=== PATIENT | male | born 1940 | race Caucasian/White ===

== ENCOUNTER 2023-12-06 08:19 | Inpatient (IN) | payer BC ==
[~2023-12-06] VITALS: Ht 177.8 cm; Wt 97.0 kg
[~2023-12-06 08:19] MED LIST: ASCO500C17 PO; ASPI-1053 PO; ATOR20TA PO; BALS750C7 PO; BISA10SU60 RC; CHOL200074 PO; DOCU-395 PO; MECL-302 PO; METO25TA6 PO; NORCO10T PO; POLY119P2 PO; SENN-263 PO; TIOT18CA3 IH
[2023-12-06 10:14] LABS: BASOPHILS # (AUTO) 0.1 X10'3 (0-0.2); BASOPHILS % (AUTO) 0.5 % (0-1); EOSINOPHILS % (AUTO) 0 % (0-6); HEMATOCRIT 42.9 % (42.0-52.0); HEMOGLOBIN 13.7 g/dl (14.0-17.9); LYMPHOCYTES # (AUTO) 0.9 X10'3 (1.1-4.8); LYMPHOCYTES % (AUTO) 8.1 % (21-51); MEAN CORPUSCULAR HEMOGLOBIN 29.4 PG (27.0-31.0); MEAN CORPUSCULAR VOLUME 91.7 FL (78-98); MONOCYTES # (AUTO) 0.9 X10'3 (0-0.9); MONOCYTES % (AUTO) 7.4 % (2-12); NEUTROPHILS # (AUTO) 9.7 X10'3 (1.8-7.7); PLATELET COUNT 200 X10'3 (140-440); RED BLOOD COUNT 4.68 X10'6 (4.70-6.10); RED CELL DISTRIBUTION WIDTH 16.4 % (11.5-14.5); WHITE BLOOD COUNT 11.5 X10'3 (4.5-11.0)
[2023-12-06 10:25] LABS: BILIRUBIN,URINE MODERATE (Neg); CLARITY,URINE SLIGHTLY CLOUDY (Clear); COLOR,URINE YELLOW (Yellow); GLUCOSE, URINE NEGATIVE (Neg); KETONES,URINE TRACE mg/dl (Neg); LEUKOCYTE ESTERASE ,URINE NEGATIVE (Neg); NITRITES, URINE NEGATIVE (Neg); OCCULT BLOOD,URINE NEGATIVE (Neg); PROTEIN,URINE TRACE mg/dl (Neg)
[2023-12-06 10:29] LABS: UA COLLECTION TYPE FOLEY CATH
[2023-12-06 10:30] LABS: CELLULAR CAST >30 /LPF (NEGATIVE); MUCUS STRANDS MANY /LPF (Neg); SQUAMOUS EPITHELIAL CELL,UR NONE SEEN /LPF (FEW)
[2023-12-06 10:33] LABS: BACTERIA,URINE NONE SEEN /HPF (Neg); RBC,URINE NONE SEEN /HPF (0-2)
[2023-12-06] MEDS: vancomycin/NS 1 GM ADD-VANTAGE 250 ML IV ONE (12:11)
[2023-12-06 12:18] LABS: ALBUMIN/GLOBULIN RATIO 0.6 (1.1-1.5); ALKALINE PHOSPHATASE 58 IU/L (46-116); ANION GAP 0 (8-16); ASPARTATE AMINO TRANSFERASE 19 U/L (10-37); BILIRUBIN,TOTAL 0.4 MG/DL (0.1-1.0); BLOOD UREA NITROGEN 24 MG/DL (7-18); CALCIUM 8.9 MG/DL (8.5-10.1); CHLORIDE 100 MMOL/L (99-107); CREATININE 1.09 MG/DL (0.60-1.10); GLUCOSE 140 MG/DL (70-104); MAGNESIUM 2.2 MG/DL (1.5-2.4); POTASSIUM 4.9 MMOL/L (3.5-5.1); PRO BRAIN NATRIURETIC PEPTIDE 2769 PG/ML (0-450); SODIUM 137 MMOL/L (135-145); TOTAL CARBON DIOXIDE 36.7 MMOL/L (24-32); TOTAL PROTEIN 7.7 G/DL (6.4-8.2); eCRCL 52 ML/MIN; eGFR 64 ML/MIN
[2023-12-06] MEDS: ringers solution, lacted 1,000 ML IV ONE (12:26)
[2023-12-06 12:29] LABS: ALANINE AMINOTRANSFERASE 16 U/L (12-78)
[2023-12-06] MEDS ORDERED: potassium Cl 20 mEq SR tablet PO PRN ×2 (13:10)
[2023-12-06] MEDS ORDERED: ondansetron/PF 4mg/2ml inj IV PRN ×2 (13:10)
[2023-12-06] MEDS ORDERED: morphine 2 MG/ML inj. syringe IV PRN (13:10)
[2023-12-06] MEDS ORDERED: magnesium hydroxide 30ml (MOM) UD suspension PO PRN (13:10)
[2023-12-06] MEDS ORDERED: acetaminophen 325mg tablet PO PRN ×2 (13:10)
[2023-12-06] MEDS ORDERED: mag hydrox/Alum hydrox/simeth 30ml oral suspension PO PRN (13:10)
[2023-12-06] MEDS ORDERED: potassium Cl 40MEQ/1/2NS 520ml 520 ML IV PRN (13:10)
[2023-12-06] MEDS ORDERED: magnesium 4gm in 100ml NS 100 ML IV PRN (13:10)
[2023-12-06] MEDS ORDERED: magnesium Cl slow-release 64mg tablet PO PRN (13:10)
[2023-12-06] MEDS ORDERED: magnesium 2GM in 50ml NS 50 ML IV PRN (13:10)
[2023-12-06] MEDS: aspirin 300mg supp.rect RC ONE (15:02)
[2023-12-06] MEDS: piperacillin/tazo 4.5gm/100ml 100 ML IV STA (15:08)
[2023-12-06] MEDS: normal saline 1000ml 1,000 ML IV SCH (15:19)
[2023-12-06] MEDS: albuterol 2.5 MG/3 ML nebule NEB ONE (15:27)
[2023-12-06 15:42] VITALS: O2SAT 93
[2023-12-06 15:46] VITALS: PULSE 61; RESP 18
[2023-12-06 17:01] VITALS: O2SAT 96
[2023-12-06 17:14] VITALS: BP 104/60; PULSE 80; RESP 24; TEMP 97.8; O2SAT 95
[2023-12-06] MEDS: methylPREDNISolone sod succ 125mg/2ml vial IV ONE (17:23)
[2023-12-06 18:30] VITALS: O2SAT 96
[2023-12-06] MEDS: docusate sod 100mg capsule PO SCH (19:32)
[2023-12-06] MEDS: K and/or MAG REPLACEMENT MC SCH (19:32)
[2023-12-06] MEDS: azithromycin/NS 500mg/250ml 250 ML IV SCH (20:26)
[2023-12-06] MEDS: enoxaparin 40mg/0.4ml syringe SQ SCH (20:26)
[2023-12-06 21:06] LABS: D-DIMER 0.91 MG/L FEU (0-0.50)
[2023-12-06 22:00] VITALS: BP 152/65; PULSE 81; RESP 19; TEMP 98.5; O2SAT 96
[2023-12-06] MEDS: CefTRIAXone/D5W-Rocephin 1gm 50 ML IV SCH (22:19)
[2023-12-07] VITALS (11 sets, daily range): BP systolic 109–158; BP diastolic 60–75; PULSE 79–111; RESP 17–23; TEMP 97.5–98.4; O2SAT 93–98
[2023-12-07 08:25] LABS: BASOPHILS % (AUTO) 0.1 % (0-1); EOSINOPHILS % (AUTO) 0 % (0-6); HEMATOCRIT 41.5 % (42.0-52.0); HEMOGLOBIN 13.3 g/dl (14.0-17.9); LYMPHOCYTES # (AUTO) 0.7 X10'3 (1.1-4.8); LYMPHOCYTES % (AUTO) 6.1 % (21-51); MEAN CORPUSCULAR HEMOGLOBIN 29.3 PG (27.0-31.0); MEAN CORPUSCULAR VOLUME 91.7 FL (78-98); MEAN PLATELET VOLUME 9.3 FL (7.4-10.4); MONOCYTES # (AUTO) 0.8 X10'3 (0-0.9); NEUTROPHILS % (AUTO) 86.8 % (42-75); PLATELET COUNT 196 X10'3 (140-440); RED BLOOD COUNT 4.52 X10'6 (4.70-6.10); RED CELL DISTRIBUTION WIDTH 15.5 % (11.5-14.5); WHITE BLOOD COUNT 11.6 X10'3 (4.5-11.0)
[2023-12-07 08:28] LABS: ALANINE AMINOTRANSFERASE 13 U/L (12-78); ALBUMIN 2.6 G/DL (3.4-5.0); ALBUMIN/GLOBULIN RATIO 0.6 (1.1-1.5); ALKALINE PHOSPHATASE 51 IU/L (46-116); ANION GAP 0 (8-16); ASPARTATE AMINO TRANSFERASE 12 U/L (10-37); BILIRUBIN,TOTAL 0.3 MG/DL (0.1-1.0); BLOOD UREA NITROGEN 19 MG/DL (7-18); BUN/CREATININE RATIO 28.4 (10.0-20.0); CALCIUM 8.3 MG/DL (8.5-10.1); CHLORIDE 103 MMOL/L (99-107); CREATININE 0.67 MG/DL (0.60-1.10); GLUCOSE 117 MG/DL (70-104); MAGNESIUM 2.3 MG/DL (1.5-2.4); POTASSIUM 4.6 MMOL/L (3.5-5.1); SODIUM 142 MMOL/L (135-145); eCRCL 85 ML/MIN; eGFR > 90 ML/MIN
[2023-12-07] MEDS: methylPREDNISolone sod succ 125mg/2ml vial IV SCH (09:13)
[2023-12-07] MEDS ORDERED: iohexol 350MG/ML 100ml bottle IV ONE (14:06)
[2023-12-07] MEDS: HYDROcodone/acetaminophen 10/325mg tab PO PRN (22:29)
[2023-12-08] VITALS (13 sets, daily range): BP systolic 113–130; BP diastolic 60–80; PULSE 74–95; RESP 16–30; TEMP 97.8–99; O2SAT 88–97
[2023-12-08 07:13] LABS: BASOPHILS % (AUTO) 0.1 % (0-1); EOSINOPHILS % (AUTO) 0 % (0-6); HEMOGLOBIN 12.5 g/dl (14.0-17.9); LYMPHOCYTES # (AUTO) 0.9 X10'3 (1.1-4.8); LYMPHOCYTES % (AUTO) 9.2 % (21-51); MEAN CORPUSCULAR HEMOGLOBIN 29.3 PG (27.0-31.0); MEAN CORPUSCULAR VOLUME 91.7 FL (78-98); MEAN PLATELET VOLUME 9.1 FL (7.4-10.4); MONOCYTES # (AUTO) 0.9 X10'3 (0-0.9); MONOCYTES % (AUTO) 9.2 % (2-12); NEUTROPHILS # (AUTO) 7.9 X10'3 (1.8-7.7); NEUTROPHILS % (AUTO) 81.5 % (42-75); PLATELET COUNT 221 X10'3 (140-440); RED BLOOD COUNT 4.25 X10'6 (4.70-6.10); RED CELL DISTRIBUTION WIDTH 15.6 % (11.5-14.5); WHITE BLOOD COUNT 9.7 X10'3 (4.5-11.0)
[2023-12-08 07:48] LABS: ALANINE AMINOTRANSFERASE 11 U/L (12-78); ALBUMIN 2.5 G/DL (3.4-5.0); ALBUMIN/GLOBULIN RATIO 0.6 (1.1-1.5); ALKALINE PHOSPHATASE 50 IU/L (46-116); ANION GAP -2 (8-16); ASPARTATE AMINO TRANSFERASE 10 U/L (10-37); BILIRUBIN,TOTAL 0.3 MG/DL (0.1-1.0); BLOOD UREA NITROGEN 20 MG/DL (7-18); BUN/CREATININE RATIO 31.7 (10.0-20.0); CALCIUM 8.1 MG/DL (8.5-10.1); CHLORIDE 101 MMOL/L (99-107); CREATININE 0.63 MG/DL (0.60-1.10); GLUCOSE 120 MG/DL (70-104); MAGNESIUM 2.3 MG/DL (1.5-2.4); POTASSIUM 4.5 MMOL/L (3.5-5.1); SODIUM 141 MMOL/L (135-145); TOTAL PROTEIN 6.5 G/DL (6.4-8.2); eCRCL 90 ML/MIN; eGFR > 90 ML/MIN
[2023-12-08 07:53] LABS: TOTAL CARBON DIOXIDE 42.4 MMOL/L (24-32)
[2023-12-08 10:56] LABS: ABG BASE EXCESS 12.8 mmol/L (-2.0-2.0); ABG HCO3 42.8 mmol/L (22.0-26.0); ABG PCO2 (T) 84.7 mmHg (35.0-48.0); ABG PH (T) 7.321 (7.340-7.440); ABG PO2 (T) 140.2 mmHg (75.0-100.0); ALLEN'S TEST POSITIVE; FCOHb 0.5 % (0.0-3.9); FLOW 6 L/min; FMetHb 0.3 % (0.0-1.5); FO2Hb 98.2 % (94-97); MODE MASK - SIMPLE; TOTAL HEMOGLOBIN 13.6 G/dl (14.0-17.9)
[2023-12-08 14:30] LABS: ABG BASE EXCESS 14.8 mmol/L (-2.0-2.0); ABG HCO3 43.5 mmol/L (22.0-26.0); ABG OXYGEN SATURATION 95.4 % (94-97); ABG PCO2 (T) 73.5 mmHg (35.0-48.0); ABG PH (T) 7.388 (7.340-7.440); ABG PO2 (T) 72.8 mmHg (75.0-100.0); ALLEN'S TEST POSITIVE; FCOHb 0.5 % (0.0-3.9); FHHb 4.6 % (0.0-5.0); FMetHb 0.3 % (0.0-1.5); FO2Hb 94.6 % (94-97); MODE MASK - BIPAP; PATIENT TEMPERATURE 36.6; TOTAL HEMOGLOBIN 13.2 G/dl (14.0-17.9)
[2023-12-09] VITALS (15 sets, daily range): BP systolic 131–147; BP diastolic 59–81; PULSE 75–120; RESP 16–27; TEMP 97.8–98.7; O2SAT 79–94
[2023-12-09 07:17] LABS: BASOPHILS % (AUTO) 0.1 % (0-1); EOSINOPHILS % (AUTO) 0 % (0-6); HEMATOCRIT 39.8 % (42.0-52.0); HEMOGLOBIN 12.6 g/dl (14.0-17.9); LYMPHOCYTES % (AUTO) 11.3 % (21-51); MEAN CORPUSCULAR HEMOGLOBIN 28.9 PG (27.0-31.0); MEAN CORPUSCULAR HGB CONC 31.8 g/dL (33.0-36.5); MEAN PLATELET VOLUME 8.7 FL (7.4-10.4); MONOCYTES # (AUTO) 0.9 X10'3 (0-0.9); MONOCYTES % (AUTO) 9.4 % (2-12); NEUTROPHILS # (AUTO) 7.2 X10'3 (1.8-7.7); NEUTROPHILS % (AUTO) 79.2 % (42-75); PLATELET COUNT 218 X10'3 (140-440); RED BLOOD COUNT 4.37 X10'6 (4.70-6.10); RED CELL DISTRIBUTION WIDTH 15.5 % (11.5-14.5); WHITE BLOOD COUNT 9.1 X10'3 (4.5-11.0)
[2023-12-09 07:39] LABS: ALANINE AMINOTRANSFERASE 14 U/L (12-78); ALBUMIN 2.4 G/DL (3.4-5.0); ALBUMIN/GLOBULIN RATIO 0.6 (1.1-1.5); ALKALINE PHOSPHATASE 41 IU/L (46-116); ANION GAP 0 (8-16); ASPARTATE AMINO TRANSFERASE 18 U/L (10-37); BILIRUBIN,TOTAL 0.3 MG/DL (0.1-1.0); BLOOD UREA NITROGEN 17 MG/DL (7-18); BUN/CREATININE RATIO 26.6 (10.0-20.0); CALCIUM 8.2 MG/DL (8.5-10.1); CHLORIDE 100 MMOL/L (99-107); CREATININE 0.64 MG/DL (0.60-1.10); GLUCOSE 126 MG/DL (70-104); MAGNESIUM 2.1 MG/DL (1.5-2.4); POTASSIUM 4.4 MMOL/L (3.5-5.1); SODIUM 140 MMOL/L (135-145); TOTAL PROTEIN 6.3 G/DL (6.4-8.2); eCRCL 89 ML/MIN; eGFR > 90 ML/MIN
[2023-12-09 07:49] LABS: TOTAL CARBON DIOXIDE 40.4 MMOL/L (24-32)
[2023-12-09] MEDS: ipratropium/albuterol 3ml nebule NEB SCH (11:00)
[2023-12-09] MEDS: diltiazem 30mg tablet PO SCH (16:56)
[2023-12-09] MEDS: methylPREDNISolone sod succ/PF 40mg inj. IV SCH (19:12)
[2023-12-10] VITALS (10 sets, daily range): BP systolic 111–122; BP diastolic 67–79; PULSE 75–97; RESP 15–22; TEMP 97.7–97.9; O2SAT 89–94
[2023-12-10] MEDS: diltiazem 5mg/ml 5ml inj. IV STA ×3 (00:30→01:35)
[2023-12-10 00:40] LABS: BASOPHILS % (AUTO) 0.2 % (0-1); EOSINOPHILS % (AUTO) 0.1 % (0-6); HEMATOCRIT 43.2 % (42.0-52.0); HEMOGLOBIN 13.8 g/dl (14.0-17.9); LYMPHOCYTES # (AUTO) 0.6 X10'3 (1.1-4.8); LYMPHOCYTES % (AUTO) 6.3 % (21-51); MEAN CORPUSCULAR HEMOGLOBIN 28.8 PG (27.0-31.0); MEAN CORPUSCULAR VOLUME 90.1 FL (78-98); MEAN PLATELET VOLUME 8.6 FL (7.4-10.4); MONOCYTES # (AUTO) 0.4 X10'3 (0-0.9); MONOCYTES % (AUTO) 4.4 % (2-12); NEUTROPHILS # (AUTO) 8.4 X10'3 (1.8-7.7); PLATELET COUNT 240 X10'3 (140-440); RED CELL DISTRIBUTION WIDTH 15.6 % (11.5-14.5); WHITE BLOOD COUNT 9.4 X10'3 (4.5-11.0)
[2023-12-10 00:48] LABS: ALANINE AMINOTRANSFERASE 14 U/L (12-78); ALBUMIN 2.8 G/DL (3.4-5.0); ALBUMIN/GLOBULIN RATIO 0.7 (1.1-1.5); ALKALINE PHOSPHATASE 47 IU/L (46-116); ANION GAP 1 (8-16); ASPARTATE AMINO TRANSFERASE 8 U/L (10-37); BILIRUBIN,TOTAL 0.4 MG/DL (0.1-1.0); BLOOD UREA NITROGEN 18 MG/DL (7-18); BUN/CREATININE RATIO 21.7 (10.0-20.0); CALCIUM 8.8 MG/DL (8.5-10.1); CHLORIDE 100 MMOL/L (99-107); CREATININE 0.83 MG/DL (0.60-1.10); GLUCOSE 175 MG/DL (70-104); POTASSIUM 4.3 MMOL/L (3.5-5.1); SODIUM 140 MMOL/L (135-145); TOTAL CARBON DIOXIDE 39.1 MMOL/L (24-32); TOTAL PROTEIN 7.1 G/DL (6.4-8.2); eCRCL 68 ML/MIN; eGFR 88 ML/MIN
[2023-12-10 00:52] LABS: APTT 26 SECONDS (22-32); INR 1.1 INR; PROTHROMBIN TIME 11.4 SECONDS (9.0-12.0)
[2023-12-10] MEDS: diltiazem 5mg/ml 5ml inj. IV ONE (01:34)
[2023-12-10 06:35] LABS: BASOPHILS % (AUTO) 0.1 % (0-1); EOSINOPHILS % (AUTO) 0 % (0-6); HEMATOCRIT 40.2 % (42.0-52.0); HEMOGLOBIN 12.9 g/dl (14.0-17.9); LYMPHOCYTES # (AUTO) 0.6 X10'3 (1.1-4.8); LYMPHOCYTES % (AUTO) 7.3 % (21-51); MEAN CORPUSCULAR HEMOGLOBIN 28.8 PG (27.0-31.0); MEAN CORPUSCULAR VOLUME 90.1 FL (78-98); MEAN PLATELET VOLUME 8.6 FL (7.4-10.4); MONOCYTES # (AUTO) 0.8 X10'3 (0-0.9); MONOCYTES % (AUTO) 9.1 % (2-12); NEUTROPHILS # (AUTO) 7.1 X10'3 (1.8-7.7); NEUTROPHILS % (AUTO) 83.5 % (42-75); PLATELET COUNT 229 X10'3 (140-440); RED BLOOD COUNT 4.46 X10'6 (4.70-6.10); RED CELL DISTRIBUTION WIDTH 15.5 % (11.5-14.5); WHITE BLOOD COUNT 8.5 X10'3 (4.5-11.0)
[2023-12-10 06:59] LABS: ALANINE AMINOTRANSFERASE 14 U/L (12-78); ALBUMIN 2.5 G/DL (3.4-5.0); ALBUMIN/GLOBULIN RATIO 0.6 (1.1-1.5); ALKALINE PHOSPHATASE 41 IU/L (46-116); ANION GAP 1 (8-16); ASPARTATE AMINO TRANSFERASE 12 U/L (10-37); BILIRUBIN,TOTAL 0.3 MG/DL (0.1-1.0); BLOOD UREA NITROGEN 19 MG/DL (7-18); BUN/CREATININE RATIO 26.8 (10.0-20.0); CALCIUM 8.4 MG/DL (8.5-10.1); CHLORIDE 100 MMOL/L (99-107); CREATININE 0.71 MG/DL (0.60-1.10); GLUCOSE 154 MG/DL (70-104); MAGNESIUM 2.1 MG/DL (1.5-2.4); POTASSIUM 4.2 MMOL/L (3.5-5.1); SODIUM 141 MMOL/L (135-145); TOTAL PROTEIN 6.4 G/DL (6.4-8.2); eCRCL 80 ML/MIN; eGFR > 90 ML/MIN
[2023-12-10 07:04] LABS: TOTAL CARBON DIOXIDE 40.2 MMOL/L (24-32)
[2023-12-10] MEDS: BALSALAZIDE DISODIUM PO SCH (08:00)
[2023-12-10] MEDS: polyethylene glycol 3350 17gm powd pack PO SCH (08:47)
[2023-12-10] MEDS: metoprolol tartrate 25mg tablet PO SCH (08:49)
[2023-12-10] MEDS: aspirin 81mg tab.chew PO SCH (08:49)
[2023-12-10] MEDS: ascorbic acid 500mg tablet PO SCH (08:49)
[2023-12-10] MEDS: ipratropium 0.5 MG/2.5ML nebule NEB SCH (10:42)
[2023-12-10] MEDS: atorvastatin 20mg tablet PO SCH (20:01)
[2023-12-11 02:00] VITALS: BP 117/66; PULSE 72; RESP 15; TEMP 97.9; O2SAT 91
[2023-12-11 06:00] VITALS: BP 136/76; PULSE 77; RESP 20; TEMP 97.5; O2SAT 92
[2023-12-11 06:30] LABS: BASOPHILS % (AUTO) 0.2 % (0-1); EOSINOPHILS % (AUTO) 0.2 % (0-6); HEMATOCRIT 42.6 % (42.0-52.0); HEMOGLOBIN 13.4 g/dl (14.0-17.9); LYMPHOCYTES # (AUTO) 1.6 X10'3 (1.1-4.8); LYMPHOCYTES % (AUTO) 13.7 % (21-51); MEAN CORPUSCULAR HEMOGLOBIN 28.7 PG (27.0-31.0); MEAN CORPUSCULAR HGB CONC 31.5 g/dL (33.0-36.5); MEAN PLATELET VOLUME 8.3 FL (7.4-10.4); MONOCYTES # (AUTO) 1.3 X10'3 (0-0.9); MONOCYTES % (AUTO) 11.4 % (2-12); NEUTROPHILS # (AUTO) 8.7 X10'3 (1.8-7.7); NEUTROPHILS % (AUTO) 74.5 % (42-75); PLATELET COUNT 236 X10'3 (140-440); RED BLOOD COUNT 4.68 X10'6 (4.70-6.10); RED CELL DISTRIBUTION WIDTH 16.1 % (11.5-14.5); WHITE BLOOD COUNT 11.6 X10'3 (4.5-11.0)
[2023-12-11 06:40] LABS: ALANINE AMINOTRANSFERASE 13 U/L (12-78); ALBUMIN 2.5 G/DL (3.4-5.0); ALBUMIN/GLOBULIN RATIO 0.7 (1.1-1.5); ALKALINE PHOSPHATASE 37 IU/L (46-116); ANION GAP -1 (8-16); ASPARTATE AMINO TRANSFERASE 9 U/L (10-37); BILIRUBIN,TOTAL 0.3 MG/DL (0.1-1.0); BLOOD UREA NITROGEN 25 MG/DL (7-18); BUN/CREATININE RATIO 35.7 (10.0-20.0); CALCIUM 8.5 MG/DL (8.5-10.1); CHLORIDE 101 MMOL/L (99-107); GLUCOSE 95 MG/DL (70-104); POTASSIUM 4.4 MMOL/L (3.5-5.1); SODIUM 140 MMOL/L (135-145); TOTAL CARBON DIOXIDE 39.9 MMOL/L (24-32); TOTAL PROTEIN 6.3 G/DL (6.4-8.2); eCRCL 81 ML/MIN; eGFR > 90 ML/MIN
[2023-12-11 07:28] VITALS: PULSE 72; RESP 16; O2SAT 93
[2023-12-11 07:45] VITALS: PULSE 74; RESP 15
[2023-12-11 08:01] VITALS: BP_SYST 136; PULSE 75
[2023-12-11] MEDS: acetaZOLAMIDE IV 500mg inj IV ONE (08:50)
[2023-12-11] MEDS ORDERED: ipratropium 0.5 MG/2.5ML nebule NEB SCH (10:27)
[2023-12-12] MEDS ORDERED: acetaZOLAMIDE IV 500mg inj IV SCH (08:00)
== END 2023-12-11 11:15 | DRG 871 ==
LOC: ER 08:20 → ED HOLD 13:11 → PCU 3S 17:15
PROVIDERS: ADMIT Family Medicine; ATTEND Family Medicine
PROC: B32T1ZZ Computerized Tomography (CT Scan) of Left Pulmonary Artery using Low Osmolar Contrast (ICD-10-PCS; principal; 2023-12-07)
PROC: B3201ZZ Computerized Tomography (CT Scan) of Thoracic Aorta using Low Osmolar Contrast (ICD-10-PCS; 2023-12-07)
PROC: B32S1ZZ Computerized Tomography (CT Scan) of Right Pulmonary Artery using Low Osmolar Contrast (ICD-10-PCS; 2023-12-07)
PROC: 5A09357 Assistance with Respiratory Ventilation, Less than 24 Consecutive Hours, Continuous Positive Airway Pressure (ICD-10-PCS; 2023-12-08)
PROC: 5A09357 Assistance with Respiratory Ventilation, Less than 24 Consecutive Hours, Continuous Positive Airway Pressure (ICD-10-PCS; 2023-12-10)
DX: A41.9 Sepsis, unspecified organism (principal); G93.41 Metabolic encephalopathy; J18.9 Pneumonia, unspecified organism; I21.A1 Myocardial infarction type 2; J90 Pleural effusion, not elsewhere classified; N39.0 Urinary tract infection, site not specified; J44.0 Chronic obstructive pulmonary disease with (acute) lower respiratory infection; Z66 Do not resuscitate; I27.81 Cor pulmonale (chronic); F03.90 Unspecified dementia, unspecified severity, without behavioral disturbance, psychotic disturbance, mood disturbance, and anxiety; I27.20 Pulmonary hypertension, unspecified
CPT/HCPCS: 36415; 36600; 70450; 71045; 71275; 76604; 80053; 81001; 82803; 82948; 83605; 83735; 83880; 84145; 84484; 85018; 85025; 85379; 85610; 85730; 87040; 87081; 87088; 93005; 93306; 94640; 94660; 94760; 99285; A5200; A6213; A6250; A6258; A6446; A6449; C1758; G0378; J0456; J0696; J1650; J2543; J2920; J2930; J3370; J3490; J7030; J7040; J7120; Q9967

== ENCOUNTER 2023-12-31 16:18 | Emergency (ER) | payer BC ==
[~2023-12-31] VITALS: Ht 190.5 cm; Wt 111.0 kg
[2023-12-31 16:29] VITALS: TEMP 97.3
[2023-12-31 17:42] LABS: BASOPHILS % (AUTO) 0.4 % (0-1); EOSINOPHILS # (AUTO) 0.1 X10'3 (0-0.9); EOSINOPHILS % (AUTO) 1.2 % (0-6); HEMATOCRIT 41.8 % (42.0-52.0); LYMPHOCYTES # (AUTO) 1.3 X10'3 (1.1-4.8); LYMPHOCYTES % (AUTO) 19.1 % (21-51); MEAN CORPUSCULAR HGB CONC 31.1 g/dL (33.0-36.5); MEAN CORPUSCULAR VOLUME 93.2 FL (78-98); MEAN PLATELET VOLUME 8.7 FL (7.4-10.4); MONOCYTES # (AUTO) 0.7 X10'3 (0-0.9); MONOCYTES % (AUTO) 10.8 % (2-12); NEUTROPHILS # (AUTO) 4.5 X10'3 (1.8-7.7); NEUTROPHILS % (AUTO) 68.5 % (42-75); PLATELET COUNT 164 X10'3 (140-440); RED BLOOD COUNT 4.49 X10'6 (4.70-6.10); RED CELL DISTRIBUTION WIDTH 16.4 % (11.5-14.5); WHITE BLOOD COUNT 6.5 X10'3 (4.5-11.0)
[2023-12-31 18:07] LABS: ALANINE AMINOTRANSFERASE 11 U/L (12-78); ALBUMIN/GLOBULIN RATIO 0.7 (1.1-1.5); ALKALINE PHOSPHATASE 47 IU/L (46-116); ANION GAP -3 (8-16); ASPARTATE AMINO TRANSFERASE 12 U/L (10-37); BILIRUBIN,TOTAL 0.2 MG/DL (0.1-1.0); BLOOD UREA NITROGEN 21 MG/DL (7-18); BUN/CREATININE RATIO 23.9 (10.0-20.0); CALCIUM 8.5 MG/DL (8.5-10.1); CHLORIDE 102 MMOL/L (99-107); CREATININE 0.88 MG/DL (0.60-1.10); GLUCOSE 128 MG/DL (70-104); POTASSIUM 4.6 MMOL/L (3.5-5.1); PRO BRAIN NATRIURETIC PEPTIDE 279 PG/ML (0-450); SODIUM 142 MMOL/L (135-145); TOTAL PROTEIN 7.1 G/DL (6.4-8.2); eCRCL 73 ML/MIN; eGFR 82 ML/MIN
[2023-12-31 18:13] LABS: TOTAL CARBON DIOXIDE 43.1 MMOL/L (24-32)
[2023-12-31 19:57] LABS: BILIRUBIN,URINE NEGATIVE (Neg); CLARITY,URINE CLEAR (Clear); COLOR,URINE YELLOW (Yellow); GLUCOSE, URINE NEGATIVE (Neg); KETONES,URINE NEGATIVE (Neg); LEUKOCYTE ESTERASE ,URINE NEGATIVE (Neg); NITRITES, URINE NEGATIVE (Neg); OCCULT BLOOD,URINE NEGATIVE (Neg); PROTEIN,URINE NEGATIVE (Neg)
[2023-12-31 19:58] LABS: UA COLLECTION TYPE VOIDED
[2023-12-31] MEDS: quetiapine 100mg tablet PO SCH (21:00)
[2023-12-31 21:30] VITALS: BP 139/77; PULSE 69; RESP 15
[2023-12-31 21:57] VITALS: O2SAT 97
== END 2023-12-31 21:58 ==
LOC: ER 16:18
DX: R06.02 Shortness of breath (principal); Z20.822 Contact with and (suspected) exposure to COVID-19; F03.90 Unspecified dementia, unspecified severity, without behavioral disturbance, psychotic disturbance, mood disturbance, and anxiety; I50.9 Heart failure, unspecified; E78.00 Pure hypercholesterolemia, unspecified; I25.2 Old myocardial infarction; G47.30 Sleep apnea, unspecified; K21.9 Gastro-esophageal reflux disease without esophagitis; Z60.2 Problems related to living alone; J44.9 Chronic obstructive pulmonary disease, unspecified; Z79.899 Other long term (current) drug therapy; Z79.82 Long term (current) use of aspirin
CPT/HCPCS: 36415; 71045; 80053; 81003; 83605; 83880; 84484; 85025; 87040; 87811; 93005; 99285; A4615